=== PATIENT | female | born 1950 | race Caucasian/White ===

== ENCOUNTER → 2016-06-19 | Outpatient (CLI) | payer MEDICARE, OTHER ==
[~2016-06-19] VITALS: Ht 170.2 cm; Wt 137.8 kg
[~2016-06-19] MED LIST: CARV6.252 PO; CYCL-375 PO; FURO20TA4 PO; INSULIN PUMP; LEVO137C5 PO; LOSA100T44 PO; MELO-267 PO; METF10002 PO; METO10TA3 PO; PANT40TA27 PO; PRAV80TA23 PO; PREG50CA PO; RANI150T7 PO; TRAM50TA4 PO; VENL-69 PO; [UNRECOGNIZED DRUG - CODE] PO
--- NOTE | 2016-06-19 14:07 | DI ---
Indication: ITS.REASON: O8A SLEEP APNEA; G47.33 FATIGUE Procedure: CHEST, PA LATERAL: Encounter: Initial Comparison: 04/05/2014 Technique: PA and lateral radiographs of the chest were obtained. Findings: Lungs and airways: Increased lung volumes raising consideration for COPD. Unchanged chronic increased interstitial markings. No focal airspace consolidation. Normal pulmonary vasculature. Pleura: No pleural effusion or pneumothorax. Heart and mediastinum: The cardiomediastinal silhouette and great vessels are within normal limits. Osseous structures and soft tissues: No acute osseous abnormality is seen. Degenerative disc disease of the thoracic spine. Impression: Increased lung volumes raising consideration for COPD with no other/acute cardiopulmonary process appreciated. .
[2016-06-19 14:14] LABS: BASOPHILS % (AUTO) 0.3 % (0-2); EOSINOPHILS # (AUTO) 0.4 T/MM3 (0-0.5); EOSINOPHILS % (AUTO) 3.7 % (0-4); HCT - HEMATOCRIT 42.7 % (36-46); HGB - HEMOGLOBIN 13.3 GM/DL (12-16); IMMATURE GRANULOCYTE # (AUTO) 0.02 T/MM3 (0.00-0.03); IMMATURE GRANULOCYTE % (AUTO) 0.2 % (0.0-0.5); LYMPHOCYTES # (AUTO) 1.9 T/MM3 (1-4.8); LYMPHOCYTES % (AUTO) 18.8 % (23-45); MEAN CORPUSCULAR HGB CONC(MCHC 31.1 GM/DL (31-37); MEAN PLATELET VOLUME 9.9 UM3 (9.4-12.4); MONOCYTES # (AUTO) 0.7 T/MM3 (0-0.8); MONOCYTES % (AUTO) 7.3 % (0-9.0); NEUTROPHILS #(AUTO)-ABSOLUTE 6.9 T/MM3 (1.8-7.7); NEUTROPHILS % (AUTO) 69.7 % (33-66); RED BLOOD COUNT 4.59 M/MM3 (4.00-5.20); WBC - WHITE BLOOD COUNT 9.8 T/MM3 (4.5-11.0)
[2016-06-19 14:23] LABS: ALBUMIN 4.1 G/DL (3.5-5.0); ALBUMIN/GLOBULIN RATIO 1.2 RATIO (1.1-2.2); ALKALINE PHOSPHATASE 116 U/L (38-126); ALT (SGPT) 28 U/L (9-52); ANION GAP 10 MEQ/L (5-15); AST (SGOT) 19 U/L (14-36); BUN/CREATININE RATIO 16 RATIO (6-26); CALCIUM 9.5 MG/DL (8.4-10.2); CHLORIDE 102 MEQ/L (98-107); CO2 - CARBON DIOXIDE 32 MEQ/L (22-30); CREATININE 0.8 MG/DL (0.7-1.2); GLOMERULAR FILTRATION RATE 72; GLUCOSE 137 MG/DL (65-110); POTASSIUM 4.5 MEQ/L (3.6-5); SODIUM 144 MEQ/L (134-144); TOTAL PROTEIN 7.6 G/DL (6.3-8.2)
== END ==
LOC: RC 12:05
PROVIDERS: ATTEND Internal Medicine Sleep Medicine
DX: G47.33 Obstructive sleep apnea (adult) (pediatric) (principal); R53.83 Other fatigue; R91.8 Other nonspecific abnormal finding of lung field; J98.8 Other specified respiratory disorders
CPT/HCPCS: 36415; 80053; 85025; 93005; 94060

== ENCOUNTER → 2016-06-25 | Outpatient (CLI) | payer MEDICARE, OTHER ==
[~2016-06-25] MED LIST changes: +IOHEXOL 180 MG/ML 20ml INJECTION ONE; +LIDOCAINE 1% (10mg/ml) 5ml VIAL ONE; +MethylPREDNISolone ACETATE 40mg/1ml ONE
--- NOTE | 2016-06-25 10:55 | DI ---
Indication:ITS.REASON: M54.41 LUMBAGO WITH SCIATICA, RIGHT SIDE Procedure:EPIDURAL INJ.SPINE W FLUO CATH LUMBAR EPIDURAL INJECTION: The patient has low back and radicular pain. The patient has had a previous series of lumbar epidural injections at a separate facility approximately five years ago that resulted in excellent relief. The details of the procedure, including the benefits, risks, and alternatives were explained to the patient. All of their questions were answered. They stated that they understood and wished to proceed. Informed consent was then obtained. A pre-procedural timeout was performed to confirm the correct patient and procedure. Utilizing aseptic technique, local lidocaine anesthetic, and fluoroscopic guidance throughout, a 22-gauge spinal needle was directed into the lumbar epidural space via an interlaminar approach at the L5-S1 level. Contrast was injected to assure proper positioning of the needle tip. A fluoroscopic image was then taken and archived. Subsequently, 120 mg Depo-Medrol was injected into the epidural space. The patient tolerated the procedure well. IMPRESSION: Successful lumbar epidural steroid injection. Fluoroscopy dose: 28.03 mGy (Cumulative air kerma) Russell Enamorado RPA/JENIFER performed this under my personal supervision. .
== END ==
LOC: IMA 07:12
PROVIDERS: ATTEND Internal Medicine
DX: M54.41 Lumbago with sciatica, right side (principal)
CPT/HCPCS: 62323; J1030; Q9965

== ENCOUNTER 2017-01-15 11:27 | Inpatient (IN) ==
[2017-01-15 12:56] VITALS: BMI 47.1
[2017-01-15] MEDS: ALBUTEROL/IPRATROPIUM 2.5mg-0.5mg/3ml NEB AEROSOL SCH ×2 (13:34→19:02)
--- OUTSIDE RECORDS SUMMARY | 2017-01-15 13:44 | External Medical Summary ---
:1950 Author Organization eClinicalWorks Care Team Providers Name Role Phone Nate Dupont Provider Role Unavailable Allergies, Adverse Reactions, Alerts Substance Reaction Event Type Lortab Info Not Available Drug Allergy Lisinopril Info Not Available Drug Allergy Crestor Info Not Available Drug Allergy Problems Problem Type Condition Code Onset Dates Condition Status Assessment Other specified diabetes mellitus E13.9 Active without complications Assessment Chronic obstructive pulmonary J44.9 Active disease, unspecified Assessment Essential (primary) hypertension I10 Active Assessment Otitis media, unspecified, left ear H66.92 Active Assessment Mixed hyperlipidemia E78.2 Active Problem 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, type II or unspecified type, uncontrolled Problem Unspecified essential hypertension 401.9 Active Problem Acute and subacute allergic otitis H65.112 Active media (mucoid) (sanguinous) (serous), left ear Assessment Cough R05 Active Assessment Wheezing R06.2 Active Problem COPD 496 Active Assessment Acute bronchitis due to other J20.8 Active specified organisms Medications Medication Code Code Instructions Start End Status Dosage System Date [place] [address]-8 100 MG Orally Feb 08, 1 capsule as 122-01 Three times a 2014 needed day as needed for cough/[place] [address]-0 4 MG Orally not defined 446-00 every 6 hrs/prn nausea Systane Balance NDC 47683-1 0.6 % not defined 433-02 Ophthalmic Ibuprofen NDC 88856-1 400 MG Orally 1 tablet 809-00 every 6 hr/prn Matzim [place] NDC 51395-4 360 MG Orally 1 tablet at 694-19 Once a day the same time each day Metformin HCl NDC 18339-1 1000 MG Orally 1 tablet with 214-01 Twice a day meals Pantoprazole NDC 02907-1 40 MG Orally 1 tablet Sodium 607-01 Once a day Lyrica NDC 61786-6 50 MG Orally hs 1 capsule 013-41 prn Metoclopramide HCl NDC 61656-8 10 MG Orally 1 tablet 30 203-01 Four times a minutes before day meals and at bedtime as needed Lasix NDC 98514-1 40 MG Orally 2 tablet 060-13 Once a day/at home Lidoderm NDC 73614-0 5 % Externally 1 patch to 376-01 Once a day intact skin remove after 12 hours Fluticasone NDC 09337-0 50 MCG/ACT 1 spray in Propionate 270-99 Nasally Twice a each nostril day Ranitidine HCl NDC 97558-9 150 MG Orally 1 capsule 855-05 Twice a day Losartan Potassium NDC 92729-6 50 MG Orally 1 tablet 124-22 Once a day Azithromycin NDC 92438-3 250 MG Orally Feb 08, 2 tablets on 146-09 as directed 2014 the first day, then 1 tablet daily for 4 days PredniSONE NDC 72022-3 10 MG Orally as Feb 08, 4 tabs daily 017-20 directed 2014 X3 days then 2 tabs daily X3 days then 1 tab daily X3 days then stop. take with food. Betamethasone NDC 79746-3 0.05 % 1 application Dipropionate 056-15 Externally Once to affected a day area Venlafaxine HCl ER NDC 93978-8 150 MG Orally 1 capsule with 386-05 Once a day food Systane [place] NDC 79176-4 Externally not defined 052-02 Perforomist NDC 88463-1 20 MCG/2ML 2 ml 605-30 Inhalation Twice a day/prn Clobetasol NDC 40040-2 0.05 % 1 application Propionate 650-15 Externally to affected Twice a week area NovoLog NDC 87989-4 100 UNIT/ML via 170 units 501-11 pump daily/4 unitsper carb prn Coreg NDC 12669-8 12.5 MG Orally 1 tablet with 141-20 Twice a day food Levothyroxine NDC 11824-6 137 MCG Orally 1 tablet on an Sodium 823-01 Once a day empty stomach in the morning Budesonide NDC 65806-9 0.5 MG/2ML 1 ml 816-73 Inhalation Twice a day Ventolin HFA NDC 09424-8 108 (90 Base) 2 puffs as 682-20 MCG/ACT needed Inhalation every 4 hrs Pravastatin Sodium NDC 96665-8 80 MG Orally 1 tablet 270-10 Once a day Albuterol Sulfate NDC 45531-5 (2.5 MG/3ML) 3 ml 990-52 0.083% Inhalation every 6 hrs/prn Acetaminophen NDC 51423-6 500 MG Orally 1 capsule as 325-08 every 6 hrs needed Procedures Procedure Coding System Code Date [facility] visit Established Patient CPT-4 G0467 2015 OFFICE VISIT, EST-MOD. COMPLEXITY (25 MIN) CPT-4 14569 2015 RAPID INFLUENZA, IN HOUSE CPT-4 69899 2015 Vital Signs Date/Time: 2015 Height 67 in Weight 295.0 lbs Temperature 98.0 F Blood Pressure Diastolic 72 mm Hg Blood Pressure Systolic 126 mm Hg Cardiac Monitoring Heart Rate 72 /min BMI 46.20 Index Oximetry 95 % Respiratory Rate 18 /min Results No Known Results Summary Purpose eClinicalWorks Submission
--- OUTSIDE RECORDS SUMMARY | 2017-01-15 13:44 | External Medical Summary ---
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, type II or unspecified type, uncontrolled Problem Unspecified essential hypertension 401.9 Active Problem Acute and subacute allergic otitis H65.112 Active media (mucoid) (sanguinous) (serous), left ear Problem COPD 496 Active Assessment Acute and subacute allergic otitis H65.112 Active media (mucoid) (sanguinous) (serous), left ear Medications Medication Code Code Instructions Start End Status Dosage System Date Date Augmentin NDC 13753-0 500-125 MG Dec 28, Jan 07, 1 tablet 080-12 Orally Twice a 2014 2014 day Ibuprofen NDC 73127-9 400 MG Orally 1 tablet 809-00 every 6 hr/prn Systane Balance NDC 42855-2 0.6 % not defined 433-02 Ophthalmic Ranitidine HCl NDC 00651-8 150 MG Orally 1 capsule 855-05 Twice a day Metformin HCl NDC 23552-8 1000 MG Orally 1 tablet with 214-01 Twice a day meals Fluticasone NDC 84965-6 50 MCG/ACT 1 spray in Propionate 270-99 Nasally Twice a each nostril day Levothyroxine NDC 39226-1 137 MCG Orally 1 tablet on an Sodium 823-01 Once a day empty stomach in the morning Systane Lid Wipes NDC 28652-6 Externally not defined 052-02 NovoLog NDC 17510-2 100 UNIT/ML via 170 units 501-11 pump daily/4 unitsper carb prn Lidoderm NDC 22628-5 5 % Externally 1 patch to 376-01 Once a day intact skin remove after 12 hours Venlafaxine HCl ER NDC 16410-6 150 MG Orally 1 capsule with 386-05 Once a day food Budesonide NDC 48787-8 0.5 MG/2ML 1 ml 816-73 Inhalation Twice a day Clobetasol NDC 54462-9 0.05 % 1 application Propionate 650-15 Externally to affected Twice a week area Albuterol Sulfate NDC 55448-9 (2.5 MG/3ML) 3 ml 990-52 0.083% Inhalation every 6 hrs/prn Metoclopramide HCl NDC 60003-3 10 MG Orally 1 tablet 30 203-01 Four times a minutes before day meals and at bedtime as needed Losartan Potassium NDC 61110-6 50 MG Orally 1 tablet 124-22 Once a day Betamethasone NDC 70788-6 0.05 % 1 application Dipropionate 056-15 Externally Once to affected a day area Lyrica NDC 89997-1 50 MG Orally hs 1 capsule 013-41 prn Zofran NDC 85795-9 4 MG Orally not defined 446-00 every 6 hrs/prn nausea Perforomist NDC 60915-3 20 MCG/2ML 2 ml 605-30 Inhalation Twice a day/prn Lasix NDC 39203-3 40 MG Orally 2 tablet 060-13 Once a day/at home Pravastatin Sodium NDC 08478-6 80 MG Orally 1 tablet 270-10 Once a day Coreg NDC 68139-7 12.5 MG Orally 1 tablet with 141-20 Twice a day food Pantoprazole NDC 05401-2 40 MG Orally 1 tablet Sodium 607-01 Once a day Acetaminophen NDC 18284-2 500 MG Orally 1 capsule as 325-08 every 6 hrs needed Ventolin HFA NDC 07390-3 108 (90 Base) 2 puffs as 682-20 MCG/ACT needed Inhalation every 4 hrs Matzim LA NDC 47565-8 360 MG Orally 1 tablet at 694-19 Once a day the same time each day Procedures Procedure Coding System Code Date OFFICE VISIT, EST-LOW COMPLEXITY (15 MIN.) CPT-4 20352 Dec 28, 2014 [facility] visit Established Patient CPT-4 G0467 Dec 28, 2014 Vital Signs Date/Time: Dec 28, 2014 Height 67 in Weight 296 lbs Temperature 97.8 F Blood Pressure Diastolic 62 mm Hg Blood Pressure Systolic 142 mm Hg Cardiac Monitoring Heart Rate 68 /min BMI 46.36 Index Oximetry 94 % Respiratory Rate 18 /min Results No Known Results Summary Purpose [employer]ClinicalWorks Submission
--- OUTSIDE RECORDS SUMMARY | 2017-01-15 13:44 | External Medical Summary ---
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
--- OUTSIDE RECORDS SUMMARY | 2017-01-15 13:44 | External Medical Summary ---
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
--- OUTSIDE RECORDS SUMMARY | 2017-01-15 13:44 | External Medical Summary ---
[...] media (mucoid) (sanguinous) (serous), left ear Medications No Known Medications Results No Known Results Summary Purpose [employer]ClinicalWorks Submission
--- OUTSIDE RECORDS SUMMARY | 2017-01-15 13:44 | External Medical Summary ---
:1950 Author Organization eClinicalWorks Care Team Providers Name Role Phone Nate Dupont Provider Role Unavailable Allergies, Adverse Reactions, Alerts Substance Reaction Event Type Lortab Info Not Available Drug Allergy Lisinopril Info Not Available Drug Allergy Crestor Info Not Available Drug Allergy Problems Problem Type Condition Code Onset Dates Condition Status Assessment Hyperlipidemia, unspecified E78.5 Active Assessment Other specified diabetes mellitus E13.9 Active without complications Assessment Essential (primary) hypertension I10 Active Problem Mixed hyperlipidemia E78.2 Active Problem Hyperlipidemia, unspecified E78.5 Active Problem Other specified diabetes mellitus E13.9 Active without complications Problem Unspecified essential hypertension 401.9 Active Problem COPD 496 Active Problem Acute and subacute allergic otitis H65.112 Active media (mucoid) (sanguinous) (serous), left ear Problem 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, type II or unspecified type, uncontrolled Assessment Encounter for screening mammogram Z12.31 Active for malignant neoplasm of breast Assessment Hypothyroidism, unspecified E03.9 Active Assessment Acute bronchitis due to other J20.8 Active specified organisms Assessment Chronic obstructive pulmonary J44.9 Active disease, unspecified Medications Medication Code Code Instructions Start End Date Status Dosage System Date Budesonide [facility] 87604-1 0.5 MG/2ML 1 ml 816-73 [place]ation [place] [address]-0 4 MG Orally not defined 446-00 every 6 hrs/[place] [address]-8 625 MG Orally Dec 23, 3 tablets with 781-78 Twice a day 2014 [place] [address]-0 500 MG Orally 1 capsule as 325-08 every 6 [place] [address]-8 40 MG Orally 1 tablet Sodium 607-01 [place] [address]-3 360 MG Orally 1 tablet at 694-19 Once a day the same [place] [address]-1 0.6 % not defined 433-02 Ophthalmic [place]roxine [place] 89793-3 137 MCG Orally 1 tablet on an Sodium 823-01 Once a day empty stomach in the morning Pravastatin NDC 66086-0 80 MG Orally 1 tablet Sodium 270-10 Once a day Venlafaxine HCl NDC 88769-6 150 MG Orally 1 capsule with ER 386-05 Once a day food Ranitidine HCl NDC 24897-6 150 MG Orally 1 capsule 855-05 Twice a day Coreg NDC 17983-0 12.5 MG Orally 1 tablet with 141-20 Twice a day food NovoLog NDC 35424-3 100 UNIT/ML via 170 units 501-11 pump daily/4 unitsper carb prn Systane Lid Wipes NDC 70193-0 Externally not defined 052-02 Lidoderm NDC 90199-6 5 % Externally 1 patch to 376-01 Once a day intact skin remove after 12 hours Clobetasol NDC 13922-8 0.05 % 1 application Propionate 650-15 Externally to affected Twice a week area Lyrica NDC 34797-2 50 MG Orally hs 1 capsule 013-41 prn Colace NDC 14303-3 100 MG Orally Mar 01May 1 capsule as 587-30 every 12 hours 2014 needed as needed for constipation Fluticasone NDC 52722-5 50 MCG/ACT 1 spray in Propionate 270-99 Nasally Twice a each nostril day Perforomist NDC 16478-9 20 MCG/2ML 2 ml 605-30 Inhalation Twice a day/prn Aspirin EC NDC 91091-3 81 MG Orally Mar 01August 27, tablet 535-76 Once a day 2014 2015 Losartan NDC 39939-1 50 MG Orally 1 tablet Potassium 124-22 Once a day Metformin HCl NDC 21119-2 1000 MG Orally 1 tablet with 214-01 Twice a day meals Betamethasone NDC 70463-2 0.05 % 1 application Dipropionate 056-15 Externally Once to affected a day area Ventolin HFA NDC 21794-5 108 (90 Base) 2 puffs as 682-20 MCG/ACT needed Inhalation every 4 hrs Albuterol Sulfate NDC 79150-3 (2.5 MG/3ML) 3 ml 990-52 0.083% Inhalation every 6 hrs/pr[place] Lasix NDC 26274-1 40 MG Orally 2 tablet 060-13 Once a day/at home Procedures Procedure Coding System Code Date OFFICE VISIT, EST-MOD. COMPLEXITY (25 MIN) CPT-4 02695 Mar 01, 2015 [facility] visit Established Patient CPT-4 G0467 Mar 01, 2015 Vital Signs Date/Time: Mar 01, 2015 Height 67 in Weight 295.0 lbs Temperature 98.7 F Blood Pressure Diastolic 74 mm Hg Blood Pressure Systolic 128 mm Hg Cardiac Monitoring Heart Rate 69 /min BMI 46.20 Index Oximetry 96 % Respiratory Rate 18 /min Results No Known Results Summary Purpose eClinicalWorks Submission
[2017-01-15] MEDS: METHYLPREDNISOLONE SOD SUCC 125mg/2ml INJECTION IVP SCH ×2 (13:53→18:15)
--- NOTE | 2017-01-15 15:01 | XRay Report ---
INDICATION: hypoxemia. PROCEDURE: CHEST 2-VIEWS UPRIGHT (PA & LAT) Encounter: Initial Comparison: June 19, 2016 Findings: The lungs are stable in appearance without new focal airspace consolidation. Mild hyperinflation with chronic interstitial prominence. There is no pleural effusion or pneumothorax. The heart size, pulmonary vascularity and mediastinal contours are unchanged. IMPRESSION: Stable appearance of the chest without acute cardiopulmonary disease. COPD. .
[2017-01-15] MEDS: BENZONATATE 100 MG CAPSULE PO SCH ×2 (15:56→21:22)
[2017-01-15] MEDS ORDERED: GLUCOSE ORAL GEL 40% 37.5gm PO PRN (16:44)
[2017-01-15] MEDS ORDERED: DEXTROSE 50% SYRINGE 50ml (1 AMP) IVP PRN (16:44)
[2017-01-15] MEDS ORDERED: LIDOCAINE 5% PATCH TOP PRN (16:47)
[2017-01-15] MEDS ORDERED: BETAMETHASONE DIP 0.05% TOP PRN (16:47)
[2017-01-15] MEDS ORDERED: FUROSEMIDE 40 MG TABLET PO PRN (16:47)
[2017-01-15] MEDS ORDERED: PREGABALIN 50 MG CAPSULE PO PRN (16:47)
[2017-01-15] MEDS ORDERED: INSULIN ASPART 100unit/ml INJECTION IV SCH (17:00)
[2017-01-15] MEDS ORDERED: ALBUTEROL/IPRATROPIUM 2.5mg-0.5mg/3ml NEB AEROSOL PRN (17:19)
--- NOTE | 2017-01-15 17:23 | History & Physical Report ---
History of Present Illness Date: 01/15/17 Chief complaint: acute COPD exacerbation and hypoxemia HPI: patient is a pleasant 66yo female known to our clinic. she has a known history of COPD. she was in her usual state of health last about 10 days ago. they had a new shower put in at that time and the adhesive they used yielded a lot of noxious fumes. right about that time her breathing took a turn for the worse. she developed more SOA. this initially manifested itself more on exertion but eventually became and issue even at rest. there was also notable wheezing and she wasn't moving air as well. she was seen in clinic today for routine follow up and it was noted that her O2 sats were in the mid-80's on room air. several deep breaths only got her to 91%. she was ambulated and her oxygen saturations again dropped to the mid-80's and she was noticably winded. her vitals were otherwise stable. her EKG done in clinic was at her usual baseline. it was opted to admit [place] [facility] [place] workup and management. no obvious fevers, chills, body aches. she doesn't really feel systemically unwell. no recent travel, camping, sick exposures, [place] swimming, rashes, skin changes, ear pain, sore throat. she has mild rhinorrhea with clear discharge. no headaches, vision changes, sinus pain. no new fatigue or weakness. blood sugars have been at her usual baseline lately. no dizziness, syncope, near- syncope, appetite changes, unintentional weight loss, night sweats, other constitutional symptoms. no falls, trauma, injuries. no chest pain, SOA, orthopnea, PND, new edema, leg asymmetry. no DVT or PE risk factors that are new. no palpitations. she's had mild to moderate cough with clear sputum. no hemoptysis. no abdominal pain, nausea, vomiting, diarrhea, constipation, bloody /black stools, hematemesis, coffee ground emesis, melena, BRBPR, dysphagia, GI warning symptoms. no dysuria, hematuria, urinary frequency, flank pain, nocturia, urinary/bowel incontinance, polyuria, oliguria, urinary retention symptoms. no mood changes, depression symptoms, changes in cognition. Review of Systems - Constitutional Constitutional: Present: as per HPI - EENMT Eyes: Present: as per HPI - Cardiovascular Cardiovascular: Present: as per HPI - Respiratory Respiratory: Present: as per HPI - Gastrointestinal Gastrointestinal: Present: as per HPI - Genitourinary Genitourinary: Present: as per HPI - Musculoskeletal Musculoskeletal: Present: as per HPI - Integumentary/Breasts Integumentary: Present: as per HPI - Neurological Neurological: Present: as per HPI - Psychiatric Psychiatric: Present: as per HPI - Endocrine Endocrine: Present: as per HPI - Hematologic/Lymphatic Hematologic/Lymphatic: Present: as per HPI - Allergic/Immunologic Allergic/Immunologic: Present: as per HPI (see above for allergies and ADR's. ) PFSH Patient Stated Medical History Migraine Yes Peripheral Neuropathy Yes Cataracts Yes Hypertension Yes Chronic Obstructive Pulmonary Yes Disease (COPD) Pneumonia Yes Sleep Apnea Yes Diabetes Mellitus Type 2 Yes: IDDM Gastroesophageal Reflux Yes Disease Osteoarthritis Yes Depression Yes Post Menopausal Yes Clinic Medical History -LANA on CPAP -Migraine headache -Depression -Anxiety -GERD -Colon polyps -Cataract -Hypertension -Diabetes mellitus type 2 -Diabetic peripheral neuropaty -Callus of foot -Hypothyroidism -Hyperlipidemia -Morbid obesity -COPD -chronic carpal tunnel syndrome Surgical History: Bilat Cataract Removal - 2016. D & C - 03/2014. Lt Knee Scope - 1994. Colonoscopy - 03/2014 Family History: Family History Father Diabetes Thyroid disease Congestive heart failure due to hypertension Heart disease Mother Type II diabetes mellitus Thyroid disease Heart disease Sister Diabetes Breast cancer Thyroid disease Heart disease - Social History Smoking status: Former smoker Social history: -former smoker which is not active -no significant alcohol use -no illicit drugs -retired. 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 -lives at home with Medications Home Medications Medication Instructions Recorded Confirmed Type Metoclopramide HCl 10 mg PO QID #120 04/07/14 01/15/17 History Pantoprazole Sodium 40 mg PO HS #90 04/07/14 01/15/17 History Pravastatin Sodium 80 mg PO HS #90 04/07/14 01/15/17 History Venlafaxine HCl [Venlafaxine HCl 150 mg PO DAILY #0 cap 04/07/14 01/15/17 History ER] Clobetasol 0.05% Cream [TEMOVATE 15 applic TOP 2XW 10/29/16 01/15/17 History Cream] Colesevelam [Welchol] 3 tab PO BID 10/29/16 01/15/17 History Fluticasone/Vilanterol Inhaler 1 puff INH DAILY 10/29/16 01/15/17 History [Breo Ellipta 100-25 mcg Inhaler] Levothyroxine Tab [Synthroid] 175 mcg PO DAILY 10/29/16 01/15/17 History Mapap ES 500 mg capsule 500 mg PO Q6H PRN 10/30/16 01/15/17 History Novolog (insulin aspart) 100 See Label Instructions .ROUTE 10/30/16 01/15/17 History unit/mL .COMPLEX blood sugar diagnostic strips See Dose Instructions .ROUTE 10/30/16 History .MEDSUPPLY #20 each diltiazem ER 360 mg 360 mg PO QAM 10/30/16 01/15/17 History tablet,extended release 24 hr glucagon 1 mg injection kit mg .ROUTE PRN 10/30/16 History oxygen PO PRN 10/30/16 History Coreg (carvedilol) 12.5 mg tablet 12.5 mg PO BID tab 11/06/16 01/15/17 History Cozaar (losartan) 100 mg tablet 100 mg PO DAILY tab 11/06/16 01/15/17 History Flonase (Fluticasone) 50 mcg nasal 1 spray INTRANASAL BID g 11/06/16 01/15/17 History spray Lasix (Furosemide) 40 mg tablet 80 mg PO QAM PRN 11/06/16 01/15/17 History Lyrica (pregabalin) 50 mg capsule 50 mg PO DAILY PRN cap 11/06/16 01/15/17 History Zantac (Ranitidine) 150 mg capsule 150 mg PO BID 11/06/16 01/15/17 History albuterol sulfate 2.5 mg/3 mL 2.5 mg INH Q6H PRN 11/06/16 01/15/17 History (0.083 %) solution for nebulization albuterol sulfate HFA 90 2 puff INH Q4H PRN g 11/06/16 01/15/17 History mcg/actuation aerosol inhaler betamethasone dipropionate 0.05 % 1 applicatio TOP DAILY PRN g 11/06/16 History topical cream lidocaine 5 % topical patch 1 patch TOP Q24H PRN 11/06/16 01/15/17 History ondansetron HCl 4 mg tablet 4 mg PO Q6H PRN 11/06/16 01/15/17 History Insulin Glargine,Hum.rec.anlog 0 unit SQ PRN PRN 01/15/17 01/15/17 History [Lantus Solostar] Metformin HCl [Glucophage] 1,000 mg PO BID 01/15/17 01/15/17 History Allergies Allergy/AdvReac Type Severity Reaction Status Date / Time lisinopril Allergy Unknown COUGH Verified 01/15/17 14:16 rosuvastatin Allergy Unknown Verified 01/15/17 14:16 hydrocodone AdvReac Unknown "NERVOUS Verified 01/15/17 14:16 BREAKDOWN" Exam Vital Signs: Temperature 96.5 F L 01/15/17 15:57 Pulse Rate 65 01/15/17 15:57 Respiratory Rate 28 H 01/15/17 15:57 Blood Pressure 154/69 H 01/15/17 15:57 Pulse Oximetry 91 01/15/17 15:57 Telemetry Rhythm: Sinus Rhythm Height/Weight/BMI: Height 1.73 m Weight 140.6 kg Body Mass Index 47.1 - Constitutional Present: no acute distress, morbidly obese, cooperative Comments: not obtunded, agitated or somnolent. - Routine HEENT Exam Head: Present: normocephalic, atraumatic ENT: Present: mucous membranes moist Comments: TM's clear b/l at this time. external auditory canals normal. no face swelling. throat clear. nares patent and eddie with mild clear discharge and edema bilaterally at this time. no mastoid tenderness b/l at this time. - Routine Neck Exam Present: supple, trachea midline Comments: no JVD. no photophobia. no clinical evidence of meningitis at this time. no nuchal rigidity. no LAD in head/neck bilaterally at this time. - Routine Chest/Breast/Axilla Exam Comments: no tenderness to chest pain all this time. - Routine Respiratory Exam Comments: notable end-expiratory wheezing at bases of lungs bilaterally at this time. not moving air nearly as well as usual. no respiratory distress, retractions, accessory muscle use, stridor, airway compromise b/l at this time. no crackles , rales bilaterally. lung sounds heard in all lung gagnon b/l at this time. respirations go up to 30's upon ambulation. - Routine Cardiovascular Exam Present: RRR, no murmur Comments: no new murmurs. new new edema in lower extremities. legs symmetrical and compartments soft b/l in LE's at this time. pulses normal and clinically well perfused in all 4 extremities b/l at this time. extremities warm X4. - Routine Abdominal Exam Present: soft (X4.), normoactive bowel sounds (X4.), non distended (X4.), non tender (X4 to deep palpation.) Comments: no rebound, guarding, rigidity. no ascites or jaundice. no clinical evidence of acute abdomen at this time. - Routine Exam Comments: no tenderness over bladder area. no flank pain b/l at this time. - Routine Extremities Exam Comments: see above. no changes from previous baselien. - Routine Back/Spine/Pelvis Exam Comments: see above. - Routine Skin Exam Present: intact Comments: no clinical evidence of skin/soft tissue infection at this time. no changes from previous to uncovered areas. - Routine Neurological Exam Present: alert, oriented X3 no focal deficits grossly. no changes from previous baseline. no clinical evidence of delerium, edna, depression, anxiety, altered mentation, confusion, altered sensorum, psychosis at this time. affect and cognition unchanged from previous and usual baseline. - Routine Psychiatric Exam Present: normal affect, normal thought process, cooperative, good insight, good judgment Comments: see above. denies homicidal/suicidal ideations. Results - Labs CBC & Chem 7: 01/15/17 13:32 01/15/17 13:32 Microbiology Results: Microbiology 01/15/17 13:32 Peripheral/Iv Start Blood Culture - Preliminary Culture Initiated - Results Pending 01/15/17 13:39 Peripheral/Iv Start Blood Culture - Preliminary Culture Initiated - Results Pending Assessment and Plan Assessment and Plan: acute hypoxic respiratory failure from acute on chronic COPD exacerbation hypertension hyperlipidemia GERD T2DM diabetic neuropathy atopic dermatitis hypothyroid diabetic gastroparesis carpal tunnel syndrome LANA chronic low back pain chronic dry eye -admit to outpatient, routine vitals with call parameters, I's and O's, daily weights, diabetic diet, activity up with assist, telemetry. continue home CPAP and oxygen. provide oxygen as needed. -cbc, cmp, respiratory PCR panel, mg, phos, d-dimer, troponin's X3 with call parameters, BNP, tsh, UA now. -cbc, cmp in the AM. -EKG, echocardiogram, CXR now. -start duonebs scheduled and prn. start IV solumedrol as well as tessalon pearles and PO doxycycline. continue current novolog insulin pump at home dose. continue home lidoderm patch, losartan, synthroid, diltiazem, metoclopramide, systane eye drops prn, zantac, pravastatin, protonix, lasix, welchol, coreg, breo inhaled, lyrica. check GLUBS and adjust diabetic meds accordingly. start hypoglycemia protocol. hold parameters placed on bp meds. -hold home albuterol inhaler and nebulizer. hold home metformin for now. -further management pending the above. seasonal allergies -continue home flonase atopic dermatitis -continue home topical steroid creams depression -continue home effexor all other chronic medical conditions stable and no other changes to plan of care at this time. ppx -SCD's for DVT ppx pending the above. given likely short length of stay the risk of pharmacologic DVT ppx outweighs the benefit. if patient would need to be here longer it is a consideration. -continue home protonix and PO diet above for GI ppx. -FULL CODE -dispo hopefully home tomorrow. DVT Prophylaxis: SCD's GI Prophylaxis: Protonix (continue PO protonix from home. ) Resuscitation Status: Full Code - Time spent with patient Time with patient PN: 50 minutes Sepsis Assessment - Evaluation Confirmed Suspected Infection: No SIRS Criteria: none
[2017-01-15] MEDS: CARVEDILOL 12.5 MG TABLET PO SCH (21:21)
[2017-01-15] MEDS: PANTOPRAZOLE 40 MG TABLET PO SCH (21:22)
[2017-01-15] MEDS: PRAVASTATIN 40 MG TABLET PO SCH (21:22)
[2017-01-15] MEDS: FLUTICASONE NASAL SPRAY 50mcg EA NOSTRIL SCH (21:23)
[2017-01-15] MEDS: COLESEVELAM 625 MG TABLET PO SCH (21:25)
[2017-01-15] MEDS: RANITIDINE 150 MG TABLET PO SCH (21:30)
[2017-01-16] MEDS: ACETAMINOPHEN 325 MG TABLET PO PRN ×3 (00:03→20:48)
[2017-01-16] MEDS: METHYLPREDNISOLONE SOD SUCC 125mg/2ml INJECTION IVP SCH ×3 (01:26→18:18)
[2017-01-16] MEDS: ALBUTEROL/IPRATROPIUM 2.5mg-0.5mg/3ml NEB AEROSOL SCH ×4 (02:05→19:45)
[2017-01-16] MEDS: LEVOTHYROXINE 175 MCG TABLET PO SCH (06:28)
[2017-01-16] MEDS: DiltiaZEM CD 360 MG CAPSULE PO SCH (08:55)
[2017-01-16] MEDS: CARVEDILOL 12.5 MG TABLET PO SCH ×2 (08:56→18:03)
[2017-01-16] MEDS: RANITIDINE 150 MG TABLET PO SCH ×2 (08:57→20:48)
[2017-01-16] MEDS: LOSARTAN 100 MG TABLET PO SCH (08:57)
[2017-01-16] MEDS: BENZONATATE 100 MG CAPSULE PO SCH ×3 (08:58→20:47)
[2017-01-16] MEDS: COLESEVELAM 625 MG TABLET PO SCH ×2 (08:59→18:02)
[2017-01-16] MEDS: FLUTICASONE NASAL SPRAY 50mcg EA NOSTRIL SCH ×2 (09:01→20:49)
[2017-01-16] MEDS: FLUTICASONE/VILANTEROL 100/25mcg INHALER ORAL INH SCH (09:27)
[2017-01-16] MEDS ORDERED: LIDOCAINE PATCH REMOVAL TOP PRN (13:28)
[2017-01-16] MEDS: PANTOPRAZOLE 40 MG TABLET PO SCH (20:48)
[2017-01-16] MEDS: PRAVASTATIN 40 MG TABLET PO SCH (20:48)
--- NOTE | 2017-01-16 21:38 | Progress Note ---
- Date 01/16/17 Subjective: patient moderately improved. states breathing is about 10 percent better overall. still requiring 2 liters of oxygen at rest with sats of about 94%. cough is minimal and mild clear sputum production. she has mild bifrontal headache which is likely from the steroids. no ear pain, sinus pain, sore throat. no runny nose right now. no skin changes or new rashes. no vision changes. no fatigue, weakness, appetite changes, constitutional symptoms. no dizziness, syncope. ability to ambulate is improved some and she's moving air better. no falls, trauma, injuries. no chest pain. no orthopnea, PND, new edema, leg asymmetry. no palpitations, hemoptysis. no issues called on telemetry. no acute issues overnight. no abdominal pain, GERD symptoms, nausea , vomiting, hematemesis, coffee ground emesis, melena, BRBPR, constipation, diarrhea, bloody/black stools. no bowel movement since admission but she's only been here a short time. no mood changes or depression symptoms. no dysuria, hematuria, urinary frequency, flank pain, nocturia, urinary/bowel incontinance. no new issues otherwise at this time. Objective Vital signs: Temperature 98.2 F 01/16/17 15:43 Pulse Rate 70 01/16/17 16:00 Respiratory Rate 18 01/16/17 19:48 Blood Pressure 149/54 H 01/16/17 15:43 Pulse Oximetry 90 01/16/17 19:48 Rhythm: Normal Sinus Rhythm Height/Weight/BMI: Height 1.73 m Weight 139 kg Body Mass Index 47.1 - Constitutional Present: no acute distress, morbidly obese, cooperative. Absent: cachectic, diaphoretic, disheveled, combative, agitated, somnolent, obtunded - Routine HEENT Exam Head: Present: normocephalic, atraumatic Eye: Absent: periorbital swelling ENT: Present: mucous membranes moist - Routine Respiratory Exam Present: CTA bilaterally (except wheezing as noted.), wheezes (bibasilar, mild, end-expiratory. ). Absent: accessory muscle use, patient mechanically ventilated, dyspnea, prolonged expiratory phase, rales, respiratory distress, rhonchi, stridor, crackles, distant breath sounds, diminished air movement Comments: lung sounds heard in all lung gagnon b/l at this time. moving air better today. - Routine Cardiovascular Exam Present: RRR. Absent: bradycardia, irregular rhythm, irregularly irregular, JVD Comments: no new murmurs. no new edema. legs symmetrical and compartments soft b/l in LE 's at this time. 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 - Routine Abdominal Exam Present: soft (X4.), normoactive bowel sounds (X4.), non distended (X4.), non tender (X4.). Absent: tenderness (X4.), distended (X4.), rebound, guarding, firm, rigid, organomegaly, mass Comments: no ascites or jaundice. - Routine Exam Comments: no tenderness over bladder area. - Routine Extremities Exam Absent: cyanosis, joint swelling, pallor, extremity cold to touch Comments: see the above. - Routine Musculoskeletal Exam Musculoskeletal: Present: no joint swelling, no tenderness, moving extremities well. Absent: joint erythera, joint swelling - Routine Skin Exam Present: intact Comments: no skin changes from previous to uncovered areas. - Routine Neurological Exam Present: alert, oriented X3 no focal deficits. no photophobia. no clinical evidence of meningitis at this time. - Routine Lymphatic Exam Lymphatic: Absent: lymphedema - Routine Psychiatric Exam Present: normal affect, normal thought process, cooperative, good insight, good judgment. Absent: auditory hallucinations, visual hallucinations, tactile hallucinations, depressed, anxious, agitated, paranoid, manic Results - Labs CBC & Chem 7: 01/16/17 05:15 01/16/17 05:15 Microbiology Results: Microbiology 01/15/17 13:32 Peripheral/Iv Start Blood Culture - Preliminary No Growth After 1 Day 01/15/17 13:39 Peripheral/Iv Start Blood Culture - Preliminary No Growth After 1 Day 01/16/17 06:39 Sputum, Expectorated Gram Stain - Final 01/16/17 06:39 Sputum, Expectorated Sputum Culture - Preliminary Culture Initiated - Results Pending Assessment and Plan Assessment and Plan: acute hypoxic respiratory failure from acute on chronic COPD exacerbation T2DM hypertension mild steroid induced leukocytosis hyperlipidemia GERD diabetic neuropathy atopic dermatitis hypothyroid diabetic gastroparesis carpal tunnel syndrome LANA chronic low back pain chronic dry eye -make inpatient. continue routine vitals with call parameters, I's and O's , daily weights, diabetic diet, activity up with assist, telemetry, home CPAP and oxygen (2 liters) at night. likely trying to start weening off oxygen tomorrow as patient will tolerate. will continue oxygen as needed otherwise. -cbc's with mild steroid induced leukocytosis and otherwise unremarkable. cmp's with sugars in 200's but otherwise unremarkable. respiratory PCR normal. mg, phos, d-dimer, troponins X3, UA , tsh, bnp unremarkable. crp mildly elevated at 10.9. EKG unchanged from patients previous baseline and non acute. CXR non-acute. -blood cultures X2 and echocardiogram pending. -cbc, cmp in the AM. -continue duonebs scheduled and prn. decrease IV solumedrol to 40mg IV q12hrs. continue PO tessalon perles. continue PO doxycycline. continue current titrated novolog insulin pump at home dose. continue home lidoderm patch, losartan, synthroid, diltiazem, metoclopramide, systane eye drops prn, zantac, pravastatin, protonix, lasix, welchol, coreg, breo inhaled, lyrica. continue to check sugars as patient does at home and adjust diabetic meds accordingly. continue hypoglycemia protocol. continue hold parameters on bp meds. -continue holding home albuterol inhaler and nebulizer. hold home metformin for now but may restart this if sugars don't improve. not likely we'll need IV contrast this stay it appears. hopefully sugars will come down with decreasing IV solumedrol. -endocrine consult a consideration (patient sees Dr. Scott as outpatient) but see how sugars look into tomorrow. -further management pending the above. seasonal allergies -continue home flonase atopic dermatitis -continue home topical steroid creams depression -continue home effexor all other chronic medical conditions stable and no other changes to plan of care at this time. ppx -continue SCD's for DVT ppx. given patient will be here longer than overnight we will start lovenox SQ at DVT prophylaxis dose. -continue home protonix and PO diet above for GI ppx. -FULL CODE -dispo ween off oxygen tomorrow. make inpatient today. moderate improvement noted overall. DVT Prophylaxis: SCD's, Lovenox (started today. ) GI Prophylaxis: Protonix (from home.), other (PO diet.) Resuscitation Status: Full Code - Time spent with patient Time with patient PN: 25 minutes Sepsis Assessment - Evaluation Confirmed Suspected Infection: No
[2017-01-17] MEDS: ALBUTEROL/IPRATROPIUM 2.5mg-0.5mg/3ml NEB AEROSOL SCH ×3 (01:37→13:42)
[2017-01-17] MEDS: LEVOTHYROXINE 175 MCG TABLET PO SCH (06:48)
[2017-01-17 07:17] VITALS: BP 165/72; TEMP 96.4
[2017-01-17] MEDS: CARVEDILOL 12.5 MG TABLET PO SCH (08:12)
[2017-01-17] MEDS: COLESEVELAM 625 MG TABLET PO SCH (08:13)
[2017-01-17] MEDS: DiltiaZEM CD 360 MG CAPSULE PO SCH (08:13)
[2017-01-17] MEDS: LOSARTAN 100 MG TABLET PO SCH (08:14)
[2017-01-17] MEDS: RANITIDINE 150 MG TABLET PO SCH (08:14)
--- NOTE | 2017-01-17 08:15 | Echocardiogram ---
DATE OF PROCEDURE January 15, 2017 REFERRING PHYSICIAN Nate Dupont DO This is a two-dimensional echo with spectral Doppler, color-flow and M-mode. It was obtained in a patient with shortness of breath. This is a technically difficult study. Left atrial dimension is at the upper limits of normal. Left ventricle wall thickness is normal. LV systolic function is normal with ejection fraction of 70%. Right atrium is normal. Right ventricle is normal. Aortic root dimension is normal. Mitral valve is morphologically normal.. Trace of mitral regurgitation is present. Aortic valve was not visualized well, however, Doppler studies indicate no stenosis or insufficiency. Tricuspid valve shows trace of tricuspid regurgitation with moderate pulmonary hypertension with estimated pulmonary artery systolic pressure of 55. Pulmonary valve shows no pulmonary insufficiency. There is no pericardial effusion. IMPRESSION 1. Normal LV systolic function with ejection fraction of 70%. 2. Trace of mitral regurgitation. 3. Trace of tricuspid regurgitation with moderate pulmonary hypertension with estimated pulmonary artery systolic pressure of 55. MTDD
[2017-01-17] MEDS: BENZONATATE 100 MG CAPSULE PO SCH ×2 (08:16→15:23)
[2017-01-17] MEDS: FLUTICASONE NASAL SPRAY 50mcg EA NOSTRIL SCH (08:18)
[2017-01-17 08:36] VITALS: RESP 20
[2017-01-17] MEDS: FLUTICASONE/VILANTEROL 100/25mcg INHALER ORAL INH SCH (08:37)
[2017-01-17] MEDS ORDERED: ENOXAPARIN 40 MG/0.4 ML INJECTION SQ SCH (09:00)
[2017-01-17] MEDS ORDERED: METHYLPREDNISOLONE SOD SUCC 40mg/ml INJECTION IVP SCH (09:00)
[2017-01-17 09:27] VITALS: PULSE 65
--- NOTE | 2017-01-17 12:34 | Progress Note ---
- Date 01/17/17 Subjective: patient doing well. no acute issues overnight. nursing notes no issues. no events called on telemetry overnight. she's coughing up some more clear sputum today and the congestion in her chest appears to be loosening up. breathing and SOA are now 50% better per patient from when she first came in. she states she'd feel comfortable going home now. mild headache on top of her head improved from yesterday on lower dose of steroids. no new headaches. no new associated neurologic or other symptoms with this. it goes away with tylenol it appears. no ear pain, sinus pain, sore throat. no dizziness, syncope, near- syncope. no SOA at rest but still mildly SOA on exertion although this is improved as well. no falls, trauma, injuries. no face swelling. no chest pain. no palpitation, hemoptysis. no orthopnea, PND, new edema, leg asymmetry. no skin changes or new rashes. no abdominal pain, GERD symptoms, nausea, vomiting, diarrhea, constipation, bloody/black stools. she hasn't had a BM since admission but she feels like she will shortly and she'll just wait until she gets home for this. she's on room air right now and comfortable. no hematemesis, coffee ground emesis. no dysuria, hematuria, urinary frequency, flank pain, nocturia, urinary/bowel incontinance, urinary retention symptoms, other urinary issues/changes. no depression symptoms or mood changes. no homicidal/suicidal ideations. no new joint or musculoskeletal issues. she feels steady on her feet. she's not weak and her gait is ok. present for part of encounter today. no new issues otherwise at this time. Objective Vital signs: Temperature 96.4 F L 01/17/17 07:16 Pulse Rate 65 01/17/17 08:00 Respiratory Rate 20 01/17/17 11:30 Blood Pressure 165/72 H 01/17/17 07:16 Pulse Oximetry 97 01/17/17 08:25 Rhythm: Normal Sinus Rhythm Height/Weight/BMI: Height 1.73 m Weight 140.6 kg Body Mass Index 47.1 - Constitutional Present: no acute distress, morbidly obese, cooperative. Absent: cachectic, diaphoretic, disheveled, combative, agitated, somnolent, obtunded - Routine HEENT Exam Head: Present: normocephalic, atraumatic Eye: Absent: periorbital swelling ENT: Present: mucous membranes moist - Routine Respiratory Exam Present: CTA bilaterally. Absent: accessory muscle use, patient mechanically ventilated, dyspnea, decreased breath sounds, prolonged expiratory phase, rales , respiratory distress, rhonchi, stridor, wheezes, crackles, distant breath sounds, diminished air movement Comments: moving air at patient's usual baseline now. - Routine Cardiovascular Exam Present: RRR. Absent: bradycardia, tachycardia, irregular rhythm, irregularly irregular, JVD Comments: no new murmurs. no new edema. legs symmetrical and compartments soft b/l in LE 's at this time. clinically well perfused in all 4 extremities b/l at this time. no evidence of dermatitis/cellulitis in legs or otherwise. - Routine Abdominal Exam Present: soft (X4.), normoactive bowel sounds (X4.), non distended (X4.), non tender (X4.). Absent: tenderness (X4.), distended (X4.), rebound, guarding, firm, rigid, organomegaly, mass Comments: no ascites or jaundice. - Routine Extremities Exam Present: non tender. Absent: cyanosis, joint swelling, pallor, extremity cold to touch - Routine Musculoskeletal Exam Musculoskeletal: Present: no joint swelling, no tenderness, no erythema, moving extremities well. Absent: joint erythera, joint swelling - Routine Skin Exam Present: intact Comments: no changes from previous baseline to uncovered areas. - Routine Neurological Exam Present: alert, oriented X3 no focal deficits grossly. no photophobia. no clinical evidence of acute meningitis at this time. - Routine Lymphatic Exam Lymphatic: Absent: lymphedema - Routine Psychiatric Exam Present: normal affect, normal thought process, cooperative. Absent: depressed , anxious, agitated, paranoid, manic Comments: affect and cognition unchanged from usual baseline. Results - Labs CBC & Chem 7: 01/17/17 04:18 01/17/17 04:18 Microbiology Results: Microbiology 01/16/17 06:39 Sputum, Expectorated Gram Stain - Final 01/16/17 06:39 Sputum, Expectorated Sputum Culture - Preliminary Early growth 01/15/17 13:32 Peripheral/Iv Start Blood Culture - Preliminary No Growth After 1 Day 01/15/17 13:39 Peripheral/Iv Start Blood Culture - Preliminary No Growth After 1 Day Assessment and Plan Assessment and Plan: acute hypoxic respiratory failure from acute on chronic COPD exacerbation T2DM mild headache from steroids, improving. hypertension chronic pulmonary hypertension from COPD mild steroid induced leukocytosis hyperlipidemia GERD diabetic neuropathy atopic dermatitis hypothyroid diabetic gastroparesis carpal tunnel syndrome LANA chronic low back pain chronic dry eye -continue inpatinet. continue routine vitals with call parameters, I's and O's, daily weights, diabetic diet, activity up with assist, telemetry, home CPAP and oxygen (2 liters) at night. ween off oxygen. will continue oxygen as needed otherwise. -cbc's with expected steroid induced leukocytosis and otherwise unremarkable. cmp's with stable sugars from previous and otherwise unremarkable. GLUBS reportedly in the mid-200's at time but this is temporary and should improve as her metformin is restarted and her steroids are weened down. echocardiogram essentially normal except a PA pressure of 55 from her chronic COPD. see previous notes for other testing and results from this stay. -blood cultures X2 negative to date but still pending officially. sputum cx and gram stain still pending. -continue duonebs scheduled and prn. continue IV solumedrol to 40mg IV q12hrs. continue PO tessalon perles. continue PO doxycycline. continue current titrated novolog insulin pump at home dose. continue home lidoderm patch, losartan, synthroid, diltiazem, metoclopramide, systane eye drops prn, zantac, pravastatin, protonix, lasix, welchol, coreg, breo inhaled, lyrica. continue to check sugars as patient does at home and adjust diabetic meds accordingly. continue hypoglycemia protocol. continue hold parameters on bp meds. -continue holding home albuterol inhaler and nebulizer. hold home metformin for now but restart on discharge. seasonal allergies -continue home flonase atopic dermatitis -continue home topical steroid creams depression -continue home effexor all other chronic medical conditions stable and no other changes to plan of care at this time. ppx -continue SCD's and SQ lovenox at DVT prophylaxis dose for DVT ppx. -continue home protonix and PO diet above for GI ppx. -FULL CODE -dispo if patient weens off oxygen well today she will likely be able to go home later today. see discharge summary and orders for the details. DVT Prophylaxis: SCD's, Lovenox GI Prophylaxis: Protonix (from home. ) Resuscitation Status: Full Code - Time spent with patient Time with patient PN: 50 minutes Sepsis Assessment - Evaluation Confirmed Suspected Infection: No
[2017-01-17 13:55] VITALS: O2SAT 92
[2017-01-17] MEDS ORDERED: PNEUMOCOCCAL 23 VACCINE 0.5ml INJECTION IM ONE (15:00)
[2017-01-17] MEDS ORDERED: PNEUMOCOCCAL VAC ADMIN CHARGE INJ ONE (15:24)
--- NOTE | 2017-01-17 16:42 | Discharge Summary ---
DATE OF ADMISSION 01/15/2017 DATE OF DISCHARGE 01/17/2017 MODERATE OF INPATIENT Inpatient. [facility] Dr[facility] CONSULTING PHYSICIANS None. ANCILLARY SERVICES None. DISCHARGE DIAGNOSES 1. Acute hypoxic respiratory failure secondary to [id number] COPD exacerbation. 2. Type 2 diabetes and steroid-induced hyperglycemia. 3. Mild headaches from steroids which are improving. 4. Hypertension. 5. Chronic pulmonary hypertension from COPD. 6. Mild steroid-induced leukocytosis. 7. Carpal tunnel syndrome. 8. Chronic obstructive sleep apnea. DISCHARGE DESTINATION The patient is discharged to home in stable and good condition. This will be self-care. DISCHARGE MEDICATIONS 1. Doxycycline 100 mg p.o. b.i.d. x 5 more days and no refills. This is a new medicine. 2. Prednisone taper. The patient will take 40 mg p.o. daily x 3 days, then 30 mg p.o. daily x 3 days, then 20 mg p.o. daily x 3 days, then 10 mg p.o. daily x 3 days, then stop. This is a new medicine. No refill is given. 3. Tylenol 325 mg p.o. q.6h. p.r.n. headache/discomfort. This is x 7 days. No refills. This is a decrease from the 650 mg p.o. q.6h. as needed she was on before. 4. Tessalon Perles 100 mg p.o. t.i.d. p.r.n. cough/congestion x 10 more days with no refills. 5. Effexor ER 150 mg p.o. daily. 6. Pravastatin 80 mg p.o. q.h.s. 7. Protonix 40 mg p.o. q.h.s. 8. Breo Ellipta 100/25 mcg inhaler, one puff inhaled daily. 9. Welchol 325 mg tablets, three tablets orally b.i.d. 10. Synthroid 175 mcg p.o. daily. 11. Albuterol sulfate inhaled nebulizer, 2.5 mg q.6h. p.r.n. shortness of air. Refills enough for six months were given for this. The patient is okayed to use this or the albuterol inhaler every six hours but not both together. 12. Reglan 10 mg p.o. with meals and before bedtime. 13. The patient was continued on same dose and schedule of her home clobetasol p.r.n. cream and betamethasone cream as well. There were no changes here. 14. Metformin 1000 mg p.o. b.i.d. 15. The patient does have a protocol from Dr. Scott for Lantus at home per the patient in case blood sugars get too high. This was continued on discharge. 16. Lidocaine topical patch. The patient will continue the same intensity, dose and schedule from prehospitalization. The patient has been using this for quite a while and is very familiar with it. She knows to take the previous patch off before applying the new patch. 17. Diltiazem ER 360 mg p.o. daily. 18. Lasix 80 mg every morning as needed for swelling. 19. NovoLog insulin will be continued per the patient's chronic insulin pump. This protocol has not been changed from preadmission. 20. Flonase 50 mcg spray, one spray each nostril b.i.d. 21. Lyrica 50 mg p.o. at night daily as needed for pain. 22. Losartan 10 mg p.o. daily. 23. Coreg 12.5 mg p.o. b.i.d. 24. Zantac 150 mg p.o. b.i.d. 25. Glucagon as per the patient's protocol at home for low blood sugars. 26. Proventil HFA, 90 mcg, two puffs inhaled q.6h. p.r.n. shortness of air. The patient may use the albuterol inhaler or the albuterol nebulizer every six hours as needed but not both together. 27. Oxygen will be continued at 2 liters at night as it was before. MEDICATIONS DISCONTINUED Zofran. Glucagon was continued at same dose and schedule from home per protocol for low blood sugars. DISCHARGE DIET Diabetic diet. No changes from prehospitalization. ACTIVITIES As tolerated. PAIN If pain occurs the patient will let us know right away. WOUND CARE 1. Order was given to Nursing to please discontinue all lines, IVs and telemetry before discharge that the patient did not come in on. This is otherwise not applicable. ADDITIONAL INSTRUCTIONS 1. The patient will take prednisone with food or milk. 2. If any issues worsen and/or new ones occur the patient will be seen immediately. 3. If the patient cannot access her medications or make her appointments she will let us know right away. 4. The patient will check blood sugars as she has been at home per her protocol for her insulin pump. She will call if the blood sugars get above 250. She will continue the current protocol for her insulin pump from preadmission as this has not changed from that time. Order is put in to call in her blood sugars to primary care every three to four days. EXPECTED SIGNS/SYMPTOMS The patient's breathing should continue to improve. The patient's mild headache should continue to improve and eventually resolve. RETURN TO CARE INSTRUCTIONS 1. The patient will return to care immediately if any increase in shortness of breath should occur. She will also return to care immediately if any chest pain , fevers, chills, body aches, dizziness, abdominal pain, heartburn symptoms, or gastrointestinal changes should occur. 2. Contact numbers given to contact Dr. Dupont during and after business hours. 3. For pending lab results the patient will follow with primary care. 4. KanQuit: This is not applicable as the patient is a former smoker but does not actively use tobacco products. FOLLOWUP Followup will be with Dr[facility] at [facility] in [place] with a CBC and CMP drawn the day before and sent to him. PATIENT EDUCATION Handouts were given including for COPD. PERTINENT LABORATORY DONE DURING THIS STAY The patient's white blood cell count did climb to 18.5 on discharge. It was normal on admission. The neutrophil percentage went to 96%. There were no bands. This is from steroids. The rest of the patient's CBCs were unremarkable while here. A D-dimer was normal on admission. Complete metabolic panels were significant only for blood sugars in the low-to- mid 200s which were improving. Liver functions tests were normal while here as was kidney function. Calcium and phosphorus and other electrolytes were unremarkable while here. Troponins x 3 on admission were negative. CRP on admission was only mildly elevated at 10.9. Brain natriuretic peptide was unremarkable on admission at 412. TSH on admission was normal. Other components of the complete metabolic panels were all unremarkable while here. Urinalysis on admission was normal. Respiratory PCR including influenza testing was negative. PERTINENT MICROBIOLOGY WHILE HERE Blood cultures x 2 from admission are negative to date. Sputum gram stain proved several different organisms which likely represented contamination. Sputum culture is currently pending. PERTINENT IMAGING DONE DURING THIS STAY 1. Echocardiogram was done during this stay. Ejection fraction was 70%. There was trace mitral regurgitation and trace tricuspid regurgitation. There was moderate pulmonary hypertension with a pulmonary artery pressure of 55 from her chronic COPD. 2. Chest x-ray PA and lateral on admission showed a stable chest without acute issues. There were chronic COPD changes noted. 3. EKG done on admission while here showed chronic T-wave inversions in the lateral leads. Otherwise, her EKGs were normal sinus rhythm and nonacute and consistent with her previous ones. The T-wave inversions in the lateral leads are also chronic and date back quite a while. These were not acute. HISTORY OF PRESENT ILLNESS/HOSPITAL COURSE This is a pleasant 66-year-old female known to our clinic. She has a known history of COPD. She was in her usual state of health last about ten days ago. At that time they had a new shower put in and the adhesive they used yielded a lot of noxious fumes. At about that time her breathing took a turn for the worse and she developed more shortness of breath as well as wheezing. There was some cough associated along with some clear sputum. The patient presented to our clinic for routine followup on the day of admission and was noted to have O2 sats that would readily drop in the low-to-mid 80s percent on any kind of ambulation. She was very short-winded on any exertion. She was not moving air well at all. The decision was made to admit to [facility] for further workup and evaluation. She was put on IV Solu-Medrol as well as oral doxycycline and Tessalon Perles. DuoNebs were scheduled and used as needed. Over the course of the next two days the patient did improve significantly. A pulmonary embolism was ruled out with a negative D-dimer. Please see above for the other extensive imaging and testing done as well as results during this stay. By discharge the patient was 50% better as far as her symptoms were concerned. She felt very comfortable going home. She was ambulating reasonably well although she was still a little short of air. She was steady on her feet and her activities of daily living were causing her no issues. She did require 2 liters of oxygen throughout the first part of her stay but was weaned down to room air by discharge. She was maintained on her 2 liters at home at night as well as her chronic CPAP for obstructive sleep apnea. With the steroid burst, antibiotics and nebulizers as noted above the patient should continue to improve as an outpatient and can be followed up in clinic in two weeks. The patient does have a known history of type 2 diabetes. She follows with Dr. Scott for this and does have an insulin pump. She was maintained on the same protocol for this NovoLog insulin pump. Her blood sugars did bump some into the mid 200s but were coming down by discharge. This is to be expected on the steroids. Her home metformin was held initially as we did not know whether she would need any IV contrast during this stay. As it turns out, she did not. Restarting her metformin from home on discharge will help the sugars as well. Instructions are given as noted above and the patient will continue to follow with Dr. Scott. The sugars should come down as she weans off the steroids and adds her metformin back. She was asymptomatic from the standpoint of diabetes while here. The patient did have a mild headache without any other neurological findings or symptoms from steroids. This was improving as the steroids were weaned down. The steroids were, of course, eventually converted to oral as listed above and this should continue to improve. The patient does have a history of hypertension. Blood pressures were a little on the high side while here in the systolics 140s to 150s at times. Her diabetes control and blood pressure control has certainly been better as an outpatient and will opt to follow this in a couple weeks rather than alter any meds that may actually cause adverse issues as an outpatient if they were increased. In regards to the patient's leukocytosis, these are from steroids. There was no clinical evidence otherwise of infection other than as noted above. Will follow this as an outpatient as noted above. In regards to the patient's hypothyroidism, she was maintained on her home Synthroid and her TSH was normal. This was otherwise asymptomatic while here. In regards to the patient's obstructive sleep apnea, she was maintained on her home CPAP and oxygen at night and she did well in this regard. As far as the patient's carpal tunnel syndrome goes, this is a chronic and stable issue. She had been having some mild neuropathic issues in her right upper extremity which were being worked up as an outpatient. These have effectively resolved and her neuro-conductive studies were unremarkable otherwise as an outpatient. She did not have any evidence of acute, chronic or worsening neurovascular or musculoskeletal compromise while here. This will be further followed as an outpatient. Please see clinic records for further details on this. All other chronic medical conditions stable and no other changes to plan of care at this time. For DVT prophylaxis the patient was put on SCDs and subcutaneous Lovenox while here. For GI prophylaxis the patient was maintained on her home Protonix as well as a p.o. diet. The patient was a FULL CODE while here. DISPOSITION TODAY In stable and good condition to home. JOO
[2017-01-17] MEDS ORDERED: CLOBETASOL 0.05% CREAM 15gm TOP SCH (17:17)
== END 2017-01-17 15:53 | disposition home or self-care (01) | DRG 190 ==
LOC: MED 12:18
PROVIDERS: ADMIT Internal Medicine; ATTEND Internal Medicine